=== PATIENT | female | born 1995 | race Caucasian/White ===

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

== ENCOUNTER 2017-03-05 10:27 | Emergency (ER) | payer SELFPAY ==
--- NOTE | 2017-03-05 10:57 | ED ---
HPI Chest Pain - HPI Summary HPI Summary: Pt here w/ central chest pain that radiates laterally Lt > Rt - dull today and lasting for hours. First noticed Friday 2 hours after dinner - had pulled pork ( not unusual for her). Pain was sharp then and lasted a few hours and eventually subsided w/o intervention other than resting. Pain returned again Friday morning before breakfast - she was able to eat pancakes and ham after the episode. Associated sx include POPE - none at this time and no dizziness, lightheadedness. Pain sometimes worse w/ deep breath. No position is more/less comfortable. Today, feels tired in general. Denies cough, SOB, fever, chills, sweats, jaw pain, N/V/D, skin changes, JOSELO pain and no recent injury or cough. She denies routine use of NSAID's however does take ibuprofen for menstrual cramps monthly and admits to new habit of drinking coffee as well as sometimes misses eating lunch. Denies hematochezia, melena. Last BM was this morning and normal for her. She does have an IUD present - LMP was this week - just finished. - History of Current Complaint Chief Complaint: EDChestPainROMI Time Seen by Provider: 03/05/17 10:42 Hx Obtained From: Patient Pain Intensity: 6 - Allergy/Home Medications Allergies/Adverse Reactions: Allergies Allergy/AdvReac Type Severity Reaction Status Date / Time Codeine Allergy See Comment Verified 03/05/17 11:14 [From Promethazine HCl-VC with Codeine] Ethanol Allergy See Comment Verified 03/05/17 11:14 [From Promethazine HCl-VC with Codeine] Phenylephrine Allergy See Comment Verified 03/05/17 11:14 [From Promethazine HCl-VC with Codeine] Promethazine Allergy See Comment Verified 03/05/17 11:14 [From Promethazine HCl-VC with Codeine] PMH/Surg Hx/FS Hx/Imm Hx Previously Healthy: Yes Endocrine/Hematology History: Denies: Hx Anticoagulant Therapy, Hx Blood Disorders, Hx Diabetes, Hx Thyroid Disease, Hx Anemia, Autoimmune Disease Cardiovascular History: Denies: Hx Aneurysm, Hx Atrial Fibrillation, Hx Congenital Heart Disease, Hx Deep Vein Thrombosis, Hx Hypercholesterolemia, Hx Hypertension, Hx Peripheral Vascular Disease, Hx Rheumatic Fever, Hx Syncope, Hx Valvular Heart Disease Respiratory History: Denies: Hx Asthma, Hx Chronic Obstructive Pulmonary Disease (COPD), Hx Pneumonia, Hx Pulmonary Embolism GI History: Denies: Hx Cirrhosis, Hx Crohn's Disease, Hx Diverticulosis, Hx Gall Bladder Disease, Hx Gastroesophageal Reflux Disease, Hx Gastrointestinal Bleed, Hx Hiatal Hernia, Hx Irritable Bowel, Hx Obstructive Bowel, Hx Ulcer Musculoskeletal History: Denies: Hx Arthritis, Hx Osteoporosis Sensory History: Denies: Hx Cataracts, Hx Contacts or Glasses, Hx Glaucoma Opthamlomology History: Denies: Hx Cataracts, Hx Contacts or Glasses, Hx Glaucoma Neurological History: Denies: Hx Headaches, Hx Seizures, Hx Transient Ischemic Attacks (TIA) Psychiatric History: Denies: Hx Anxiety, Hx Depression - Surgical History Surgery Procedure, Year, and Place: ear operation. Bunionectomy bilateral Infectious Disease History: No Infectious Disease History: Denies: Traveled Outside the [place] in Last 30 Days - Family History Known Family History: Positive: Cardiac Disease - CHF, Other - asthma - Social History Occupation: Employed Full-time Lives: With Family Alcohol Use: Rare Hx Substance Use: No Substance Use Type: Reports: None Hx Tobacco Use: Yes - not currently Smoking Status (MU): Former Smoker Review of Systems Constitutional: Negative Negative: Fever, Chills, Fatigue Eyes: Negative ENT: Negative Positive: Chest Pain. Negative: Palpitations Respiratory: Negative Negative: Shortness Of Breath, Cough Negative: Vomiting, Diarrhea, Nausea Positive: no symptoms reported Musculoskeletal: Negative Skin: Negative Positive: Headache. Negative: Weakness, Paresthesia, Numbness, Syncope, Slurred Speech Psychological: Normal All Other Systems Reviewed And Are Negative: Yes Physical Exam Triage Information Reviewed: Yes Vital Signs On Initial Exam: Initial Vitals Temp Pulse Resp BP Pulse Ox 97.5 F 66 16 122/72 99 03/05/17 10:34 03/05/17 10:34 03/05/17 10:34 03/05/17 10:34 03/05/17 10:34 Vital Signs Reviewed: Yes Appearance: Positive: Well-Appearing, No Pain Distress, Well-Nourished Skin: Positive: Warm, Dry - no skin changes over affected area Head/Face: Positive: Normal Head/Face Inspection Eyes: Positive: Normal, EOMI, Conjunctiva Clear - anicteric sclera ENT: Positive: Normal ENT inspection, Hearing grossly normal, Pharynx normal - mucosa moist. Negative: Nasal congestion, Nasal drainage Neck: Positive: Supple, Nontender, No Lymphadenopathy Respiratory/Lung Sounds: Positive: Clear to Auscultation, Breath Sounds Present. Negative: Rales, Rhonchi, Wheezes Cardiovascular: Positive: Normal, RRR, S1, S2. Negative: Murmur, Rub Abdomen Description: Positive: No Organomegaly, Soft, Other: - mild epigastric tenderness. Negative: Distended, Guarding Bowel Sounds: Positive: Present Pelvic Exam: Positive: other - deferred Musculoskeletal: Positive: Normal, Strength/ROM Intact Neurological: Positive: Normal, Sensory/Motor Intact, Alert, Oriented to Person Place, Time, CN Intact II-III Psychiatric: Positive: Normal - Shanika Coma Scale Coma Scale Total: 15 Diagnostics - Vital Signs Vital Signs Temp Pulse Resp BP Pulse Ox 03/05/17 10:44 70 12 100 03/05/17 10:42 118/77 03/05/17 10:34 97.5 F 66 16 122/72 99 - Laboratory Result Diagrams: 03/05/17 11:03 03/05/17 11:03 Lab Statement: Any lab studies that have been ordered have been reviewed, and results considered in the medical decision making process. Re-Evaluation - Re-Evaluation First Eval Change: Improved - pain resolved w/ GI cocktail Chest Pain Course/Dx - Course Course Of Treatment: Pt presents w/ chest pain after/before meals. Better w/ GI cocktail and labs, ECG, CXR neg for acute cardiopulm pathology. Dx'd w/ GERD and advised lifestyle changes, med trial and f/u w/ PCP. Reviewed danger s/sx of when to return to ED. Pt agrees w/ plan. - Diagnoses Provider Diagnoses: GERD (gastroesophageal reflux disease) Discharge - Discharge Plan Condition: Stable Disposition: HOME Prescriptions: Omeprazole CAP* [Prilosec CAP* 20 MG] 20 mg PO BEDTIME #14 Patient Education Materials: Gastroesophageal Reflux Disease (ED) Referrals: [facility] PHYSICIAN REFERRAL [Outside] Blanca IBRAHIMPSamara [Primary Care Provider] - Additional Instructions: You appear to have GERD. Please try the medication prescribed along with lifestyle changes suggested below to reduce/eliminate your symptoms. Specifically, stop taking NSAID's, reduce coffee intake and eat 3+ balanced meals per day It is also important that you follow-up with your PCP in 1 week. Call today to schedule appointment. *If symptoms return or are worse, return to ED GERD (Gastro-Esophageal Reflux Disease aka. HEARTBURN) 1. Keep a food and beverage journal. It can help you track and avoid triggers. Once identified, avoid these. Common items include: chocolate, mint, coffee, alcohol these relax the upper sphincter allowing acid to splash up and cause pain. Others include: acidic (ie citrus, etc), spicy foods, smoking and NSAIDs (advil, ibuprofen, aspirin, aleve, naproxyn) these directly irritate the lining of the stomach 2. Eat small, frequent meals. Overeating at one setting stretches your stomach and puts pressure on the upper sphincter and can push it open enough to allow acid to creep up and cause pain. 3. Wear loose clothing and maintain a healthy weight. Tight pants/shirt and/ or an enlarged abdomen push on your stomach, reducing the amount of space the stomach may stretch while eating. 4. Avoid lying down after eating 5. Stress can increase stomach acid as well as increase restriction of abdominal tension if youre always holding you muscles tight. Practice relaxation techniques such as breathing exercises, guided imagery, regular physical activity to burn off anxiety/stress. 6. Sip chamomile tea (with or without honey). It can help soothe inflamed tissue in the esophagus. 7. Try sleeping on your left side. This may help move acid away from the entrance of the esophagus. 8. You may also try eating a yogurt a day or a probiotic supplement (ie, acidophilus, casei, bifidus, etc) if you have an overgrowth of bad bacteria from too many antibiotics over a lifetime, this may help replace good bacteria and reduce stomach dis-ease
[2017-03-05] MEDS ORDERED: Lidocaine 2% VISCOUS* 15 ML UDC PO ONE (11:00)
[2017-03-05] MEDS ORDERED: Al Hydrox/Mg Hydrox/Simet LIQ* 30 ML UDC PO ONE (11:00)
[2017-03-05 11:13] LABS: Hematocrit 37 % (35-47); Hemoglobin 12.4 g/dl (12.0-16.0); Mean Corpuscular HGB Conc 34 g/dl (31-36); Mean Corpuscular Hemoglobin 30 pg (27-31); Mean Corpuscular Volume 89 fL (80-97); Mean Platelet Volume 9 um3 (7.4-10.4); Red Blood Count 4.14 10^6/ul (4.0-5.4); Red Cell Distribution Width 13 % (10.5-15); White Blood Count 7.7 10^3/ul (3.5-10.8)
--- NOTE | 2017-03-05 11:26 | RAD ---
HISTORY: Chest pain COMPARISONS: None VIEWS: 4: Frontal dual-energy and lateral views of the chest. FINDINGS: CARDIOMEDIASTINAL SILHOUETTE: The cardiomediastinal silhouette is normal. PARK: The park are normal. PLEURA: The costophrenic angles are sharp. No pleural abnormalities are noted. LUNG PARENCHYMA: The lungs are clear. ABDOMEN: The upper abdomen is clear. There is no subphrenic gas. BONES AND SOFT TISSUES: No bone or soft tissue abnormalities are noted. OTHER: None. IMPRESSION: NO ACTIVE CARDIOPULMONARY DISEASE.
[2017-03-05 11:31] LABS: ALT 11 U/L (7-52); AST 14 U/L (13-39); Albumin 4.3 g/dL (3.2-5.2); Alkaline Phosphatase 55 U/L (34-104); Amylase 52 U/L (29-103); Anion Gap 5 mmol/L (2-11); BUN/Creatinine Ratio 12.3 (8-20); Blood Urea Nitrogen 10 mg/dL (6-24); CO2 Carbon Dioxide 28 mmol/L (22-32); Calcium 9.5 mg/dL (8.6-10.3); Chloride 106 mmol/L (101-111); EGFR African American 117.1 (>60); EGFR Non-African American 91.1 (>60); Globulin 2.5 g/dL (2-4); Glucose 96 mg/dL (70-100); Lipase 19 U/L (11.0-82.0); Magnesium 1.8 mg/dL (1.9-2.7); Potassium 3.7 mmol/L (3.5-5.0); Sodium 139 mmol/L (133-145); Total Protein 6.8 g/dL (6.4-8.9)
[2017-03-05 12:07] LABS: TSH (Thyroid Stimulating Horm) 2.17 mcIU/mL (0.34-5.60)
[2017-03-05 12:10] VITALS: BP 113/70
== END 2017-03-05 12:33 | disposition home or self-care (01) ==
LOC: ED 10:27
DX: K21.9 Gastro-esophageal reflux disease without esophagitis (principal); R07.9 Chest pain, unspecified; Z87.891 Personal history of nicotine dependence
CPT/HCPCS: 36415; 71020; 80053; 82150; 83605; 83690; 83735; 84443; 84484; 84702; 85025; 85379; 93005; 99282; A9270-GY

== ENCOUNTER 2017-03-31 18:20 | Emergency (ER) | payer OTHER ==
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
[2017-03-31 18:54] VITALS: BP 115/68
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
[2017-03-31] MEDS ORDERED: Ibuprofen TAB* 400 MG PO ONE (20:30)
[2017-03-31] MEDS ORDERED: Ibuprofen TAB* 400 MG ONE (20:31)
== END 2017-03-31 20:30 | disposition home or self-care (01) ==
LOC: UCCORT 18:20
DX: S09.90XA Unspecified injury of head, initial encounter (principal); S40.012A Contusion of left shoulder, initial encounter; S20.212A Contusion of left front wall of thorax, initial encounter; V89.2XXA Person injured in unspecified motor-vehicle accident, traffic, initial encounter; Y92.9 Unspecified place or not applicable; Z88.8 Allergy status to other drugs, medicaments and biological substances; Z87.891 Personal history of nicotine dependence
CPT/HCPCS: 70450; 71046; 72125; 99213; A9270-GY; G0463

== ENCOUNTER 2017-05-09 14:31 | Emergency (ER) | payer BC, OTHER ==
[2017-05-09 14:50] VITALS: BP 114/67
--- NOTE | 2017-05-09 14:52 | UC ---
FLU HPI - HPI Summary HPI Summary: Pt c/o malaise, fever, chills, cough X 4 days. Pt has known exposure to flu at home. - History of Current Complaint Stated Complaint: FLU SYMPTOMS Time Seen by Provider: 05/09/17 14:43 Hx Obtained From: Patient Hx Last Menstrual Period: 03/01/17 ?: No Onset/Duration: Sudden Onset, Lasting Days, Still Present Severity Currently: Mild Severity Initially: Moderate Pain Intensity: 6 Associated Signs & Symptoms: Positive: Fever, Cough, Nasal Congestion Related Hx: Possible Flu/Infectious Exposure - Risk Factors Influenza Risk Factors: Negative - Allergy/Home Medications Allergies/Adverse Reactions: Allergies Allergy/AdvReac Type Severity Reaction Status Date / Time MS Ethanol Allergy See Comment Verified 05/09/17 14:45 [From Promethazine HCl-VC with Codeine] MS Phenylephrine Allergy See Comment Verified 05/09/17 14:45 [From Promethazine HCl-VC with Codeine] MS Promethazine Allergy See Comment Verified 05/09/17 14:45 [From Promethazine HCl-VC with Codeine] Home Medications: Home Medications Meloxicam [Mobic] 7.5 mg PO BID PRN 05/09/17 [History Confirmed 05/09/17] PMH/Surg Hx/FS Hx/Imm Hx Previously Healthy: Yes Other History Of: Negative For: Anticoagulant Therapy - Surgical History Surgical History: Yes Surgery Procedure, Year, and Place: ear operation. Bunionectomy bilateral - Family History Known Family History: Positive: Cardiac Disease - CHF, Other - asthma - Social History Lives: With Family Alcohol Use: None Substance Use Type: None Smoking Status (MU): Former Smoker Type: Cigarettes Have You Smoked in the Last Year: Yes When Did the Patient Quit Smoking/Using Tobacco: ONE MONTH AGO - Immunization History Vaccination Up to Date: Yes Review of Systems Constitutional: Fever, Chills, Fatigue Skin: Negative Eyes: Negative ENT: Sinus Congestion Respiratory: Cough Cardiovascular: Negative Gastrointestinal: Negative Genitourinary: Negative Motor: Negative Neurovascular: Negative Musculoskeletal: Myalgia Neurological: Negative Psychological: Negative Is Patient Immunocompromised?: No All Other Systems Reviewed And Are Negative: Yes Physical Exam Triage Information Reviewed: Yes Appearance: Ill-Appearing Vital Signs: Initial Vital Signs Temp 99.3 F 05/09/17 14:46 Pulse 80 05/09/17 14:46 Resp 16 05/09/17 14:46 BP 114/67 05/09/17 14:46 Pulse Ox 98 05/09/17 14:46 Vital Signs Reviewed: Yes Eye Exam: Normal ENT Exam: Other ENT: Positive: Nasal congestion Neck exam: Normal Respiratory Exam: Normal Cardiovascular Exam: Normal Musculoskeletal Exam: Normal Neurological Exam: Normal Psychological Exam: Normal Skin Exam: Normal Flu Course/Dx - Differential Dx/Diagnosis Differential Diagnosis/HQI/PQRI: Influenza, Upper Respiratory Infection Provider Diagnoses: Influenza Discharge - Discharge Plan Condition: Stable Disposition: HOME Prescriptions: Oseltamivir CAP* [Tamiflu CAP*] 75 mg PO Q12H #10 cap Patient Education Materials: Influenza (ED) Referrals: [facility] PHYSICIAN REFERRAL [Outside] No Primary Care Phys,NOPCP [Primary Care Provider] -
== END 2017-05-09 15:02 | disposition home or self-care (01) ==
LOC: UCCORT 14:31
DX: J11.1 Influenza due to unidentified influenza virus with other respiratory manifestations (principal); Z88.8 Allergy status to other drugs, medicaments and biological substances; Z82.49 Family history of ischemic heart disease and other diseases of the circulatory system; Z87.891 Personal history of nicotine dependence
CPT/HCPCS: 99212; G0463

== ENCOUNTER 2017-10-07 21:39 | Emergency (ER) | payer BC ==
[2017-10-07 21:50] VITALS: BP 114/70
[2017-10-07] MEDS ORDERED: diPHENhydraMINE PO* 25 MG PO ONE (21:59)
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
[2017-10-07] MEDS ORDERED: predniSONE TAB* 20 MG PO ONE (22:02)
[2017-10-08] MEDS ORDERED: predniSONE TAB* 20 MG PO SCH (09:00)
== END 2017-10-07 22:08 | disposition home or self-care (01) ==
LOC: UCCORT 21:39
DX: R21 Rash and other nonspecific skin eruption (principal); Z88.8 Allergy status to other drugs, medicaments and biological substances; Z82.49 Family history of ischemic heart disease and other diseases of the circulatory system; Z82.5 Family history of asthma and other chronic lower respiratory diseases; Z87.891 Personal history of nicotine dependence
CPT/HCPCS: 99212; A9270-GY; G0463; J7512

== ENCOUNTER 2018-07-25 22:16 | Emergency (ER) | payer BC ==
[2018-07-25 23:48] LABS: ABS Basophils 0 10^3/ul (0-0.2); ABS Eosinophils 0.4 10^3/ul (0-0.6); ABS Lymphocytes 2.7 10^3/ul (1.0-4.8); ABS Monocytes 0.8 10^3/ul (0-0.8); ABS Neutrophils 6.8 10^3/ul (1.5-7.7); ABS Nucleated RBC 0 10^3/ul; Eosinophil % 3.5 %; Hematocrit 36 % (33-41); Hemoglobin 12.2 g/dL (12.0-16.0); Lymphocyte % 25.4 %; Mean Corpuscular HGB Conc 34 g/dL (31-36); Mean Corpuscular Hemoglobin 30 pg (27-31); Mean Corpuscular Volume 88 fL (80-97); Mean Platelet Volume 8.6 fL (7.4-10.4); Nucleated Red Blood Cells % 0; Platelet Count 200 10^3/uL (150-450); Red Blood Count 4.05 10^6 /uL (3.70-4.87); Red Cell Distribution Width 14 % (10.5-15); White Blood Count 10.7 10^3/uL (3.5-10.8)
[2018-07-26 00:06] LABS: Albumin 4.3 g/dL (3.2-5.2); Albumin/Globulin Ratio 1.9 (1-3); BUN/Creatinine Ratio 20.8 (8-20); C Reactive Protein 2.86 mg/L (<8.01); Calcium 9.5 mg/dL (8.6-10.3); EGFR African American 123.7 (>60); EGFR Non-African American 102.3 (>60); Globulin 2.3 g/dL (2-4); Magnesium 1.8 mg/dL (1.9-2.7); Total Bilirubin 0.3 mg/dL (0.2-1.0); Total Protein 6.6 g/dL (6.4-8.9)
[2018-07-26] MEDS ORDERED: Metoclopramide IV* 5 MG/ML 2 ML VIAL IV SLOW PU ONE (00:11)
[2018-07-26] MEDS ORDERED: NS 0.9% 1000 ML** 1,000 ML IV ONE (00:11)
--- NOTE | 2018-07-26 00:35 | ED ---
GI/ HPI - HPI Summary HPI Summary: 23 year old female presents with nausea and vomiting for the past 24 hours. States only bowel pain when she is vomiting. No urinary symptoms. States she' s not been keeping anything down in 24 hours. This has never happened before. No fevers. No diarrhea or constipation. Has not tried anything for the symptoms. Had an ultrasound has history of a subchorionic hemorrhage. Denies any vaginal bleeding. - History of Current Complaint Chief Complaint: EDNauseaVomitDiarrh Time Seen by Provider: 07/26/18 00:11 Stated Complaint: 9 WKS PREG/VOMITING PER PT Hx Last Menstrual Period: 04/22/18 Pain Intensity: 8 - Allergy/Home Medications Allergies/Adverse Reactions: Allergies Allergy/AdvReac Type Severity Reaction Status Date / Time promethazine Allergy Altered Verified 07/25/18 22:19 Mental Status Home Medications: Home Medications Pnv No.121/Iron/Folic Acid [ Multivitamin Tablet] 1 each PO DAILY [History Confirmed 07/26/18] PMH/Surg Hx/FS Hx/Imm Hx Endocrine/Hematology History: Denies: Hx Anticoagulant Therapy, Hx Blood Disorders, Hx Diabetes, Hx Thyroid Disease, Hx Anemia Cardiovascular History: Denies: Hx Aneurysm, Hx Atrial Fibrillation, Hx Congenital Heart Disease, Hx Deep Vein Thrombosis, Hx Hypercholesterolemia, Hx Hypertension, Hx Peripheral Vascular Disease, Hx Rheumatic Fever, Hx Syncope, Hx Valvular Heart Disease Respiratory History: Denies: Hx Asthma, Hx Chronic Obstructive Pulmonary Disease (COPD), Hx Pneumonia, Hx Pulmonary Embolism GI History: Denies: Hx Cirrhosis, Hx Crohn's Disease, Hx Diverticulosis, Hx Gall Bladder Disease, Hx Gastroesophageal Reflux Disease, Hx Gastrointestinal Bleed, Hx Hiatal Hernia, Hx Irritable Bowel, Hx Obstructive Bowel, Hx Ulcer Musculoskeletal History: Denies: Hx Arthritis, Hx Osteoporosis Sensory History: Denies: Hx Cataracts, Hx Contacts or Glasses, Hx Glaucoma Opthamlomology History: Denies: Hx Cataracts, Hx Contacts or Glasses, Hx Glaucoma Neurological History: Denies: Hx Headaches, Hx Seizures, Hx Transient Ischemic Attacks (TIA) Psychiatric History: Denies: Hx Anxiety, Hx Depression - Surgical History Surgery Procedure, Year, and Place: ear operation. Bunionectomy bilateral Infectious Disease History: No Infectious Disease History: Denies: Traveled Outside the [place] in Last 30 Days - Family History Known Family History: Positive: Cardiac Disease - CHF, Other - asthma - Social History Alcohol Use: None Hx Substance Use: No Substance Use Type: Reports: None Hx Tobacco Use: Yes - not currently Smoking Status (MU): Former Smoker Type: Cigarettes Have You Smoked in the Last Year: Yes Review of Systems Negative: Fever Negative: Chest Pain Negative: Shortness Of Breath Positive: Abdominal Pain, Vomiting, Nausea All Other Systems Reviewed And Are Negative: Yes Physical Exam Triage Information Reviewed: Yes Vital Signs On Initial Exam: Initial Vitals Temp Pulse Resp BP Pulse Ox 97.9 F 72 16 130/80 100 07/25/18 22:18 07/25/18 22:18 07/25/18 22:18 07/25/18 22:18 07/25/18 22:18 Vital Signs Reviewed: Yes Appearance: Positive: Well-Appearing Skin: Positive: Warm, Dry Head/Face: Positive: Normal Head/Face Inspection Eyes: Positive: Normal, EOMI, SAGAR, Conjunctiva Clear ENT: Positive: Normal ENT inspection, Pharynx normal, TMs normal Respiratory/Lung Sounds: Positive: Clear to Auscultation, Breath Sounds Present Cardiovascular: Positive: Normal, RRR Abdomen Description: Positive: Nontender, Soft Bowel Sounds: Positive: Present Musculoskeletal: Positive: Normal Neurological: Positive: Normal Psychiatric: Positive: Normal Diagnostics - Vital Signs Vital Signs Temp Pulse Resp BP Pulse Ox 07/25/18 22:18 97.9 F 72 16 130/80 100 - Laboratory Lab Results: Lab Results 07/25/18 07/25/18 07/25/18 Range/Units 23:33 23:33 23:33 WBC 10.7 (3.5-10.8) 10^3/uL RBC 4.05 (3.70-4.87) 10^6 /uL Hgb 12.2 (12.0-16.0) g/dL Hct 36 (33-41) % MCV 88 (80-97) fL MCH 30 (27-31) pg MCHC 34 (31-36) g/dL RDW 14 (10.5-15) % Plt Count 200 (150-450) 10^3/uL MPV 8.6 (7.4-10.4) fL Neut % (Auto) 63.3 % Lymph % (Auto) 25.4 % Early % (Auto) 7.4 % Eos % (Auto) 3.5 % Baso % (Auto) 0.4 % Absolute Neuts (auto) 6.8 (1.5-7.7) 10^3/ul Absolute Lymphs (auto) 2.7 (1.0-4.8) 10^3/ul Absolute Monos (auto) 0.8 (0-0.8) 10^3/ul Absolute Eos (auto) 0.4 (0-0.6) 10^3/ul Absolute Basos (auto) 0 (0-0.2) 10^3/ul Absolute Nucleated RBC 0 10^3/ul Nucleated RBC % 0 Sodium 137 (135-145) mmol/L Potassium 4.0 (3.5-5.0) mmol/L Chloride 105 (101-111) mmol/L Carbon Dioxide 25 (22-32) mmol/L Anion Gap 7 (2-11) mmol/L BUN 15 (6-24) mg/dL Creatinine 0.72 (0.51-0.95) mg/dL Est GFR ( Amer) 123.7 (>60) Est GFR (Non-Af Amer) 102.3 (>60) BUN/Creatinine Ratio 20.8 H (8-20) Glucose 83 (70-100) mg/dL Lactic Acid 0.6 (0.5-2.0) mmol/L Calcium 9.5 (8.6-10.3) mg/dL Magnesium 1.8 L (1.9-2.7) mg/dL Total Bilirubin 0.30 (0.2-1.0) mg/dL AST 14 (13-39) U/L ALT 11 (7-52) U/L Alkaline Phosphatase 42 (34-104) U/L C-Reactive Protein 2.86 (<8.01) mg/L Total Protein 6.6 (6.4-8.9) g/dL Albumin 4.3 (3.2-5.2) g/dL Globulin 2.3 (2-4) g/dL Albumin/Globulin Ratio 1.9 (1-3) Lipase 24 (11.0-82.0) U/L Beta HCG, Quant 417941.00 mIU/mL Result Diagrams: 07/25/18 23:33 07/25/18 23:33 Lab Statement: Any lab studies that have been ordered have been reviewed, and results considered in the medical decision making process. Re-Evaluation - Re-Evaluation First Eval Re-Evaluation Time: 02:28 Change: Improved Comment: feeling better GIGU Course/Dx - Course Course Of Treatment: 23 year old female presents with nausea and vomiting for the past 24 hours. States only bowel pain when she is vomiting. No urinary symptoms. States she's not been keeping anything down in 24 hours. This has never happened before. No fevers. No diarrhea or constipation. Has not tried anything for the symptoms. Had an ultrasound has history of a subchorionic hemorrhage. Denies any vaginal bleeding. On exam nontender abdomen. wbc normal. Magnesium low. We will give fluids. feeling better after reglan. will discharge with reglan. told to follow up with [facility]. patient understand and agrees with plan. - Diagnoses Differential Diagnoses - Female: Gastroenteritis (Viral), , Urinary Tract Infection Provider Diagnoses: Vomiting during Discharge - Sign-Out/Discharge Documenting (check all that apply): Patient Departure Patient Received Moderate/Deep Sedation with Procedure: No - Discharge Plan Condition: Good Disposition: HOME Prescriptions: Metoclopramide TAB* [Reglan TAB*] 10 mg PO Q6H #20 tab Patient Education Materials: Nausea and Vomiting in (ED) Forms: *Work Release Referrals: Hemant Malone DO [Primary Care Provider] - Additional Instructions: Take reglan every 6 hours for vomiting Eat a small snack throughout the day, drink liquids as tolerated Follow up with obgyn Return to ED if develop any new or worsening symptoms - Billing Disposition and Condition Condition: GOOD Disposition: Home
[2018-07-26] MEDS ORDERED: Magnesium Chloride EC TAB* 64 MG PO ONE (01:24)
[2018-07-26 03:39] VITALS: BP 122/79
== END 2018-07-26 02:35 | disposition home or self-care (01) ==
LOC: ED 22:16
DX: O21.0 Mild hyperemesis gravidarum (principal); Z3A.09 9 weeks gestation of pregnancy; Z88.8 Allergy status to other drugs, medicaments and biological substances; Z87.891 Personal history of nicotine dependence
CPT/HCPCS: 36415; 80053; 83605; 83690; 83735; 84702; 85025; 86140; 96361; 96374; 99283; A9270-GY; J2765

== ENCOUNTER 2018-07-28 13:34 | Emergency (ER) | payer BC, MEDICAID ==
[2018-07-28] MEDS: NS 0.9% 1000 ML** 1,000 ML IV.FLUID IV ONE (16:11)
[2018-07-28] MEDS: diPHENhydraMINE IV* 50 MG/ML 1 ml VIAL (BENADRYL) IV ONE (16:11)
[2018-07-28] MEDS: Metoclopramide IV* 5 MG/ML 2 ML VIAL IV ONE (16:11)
--- NOTE | 2018-07-28 16:20 | ED ---
- HPI Summary HPI Summary: Pt is a 23 y/o female who presents to the ED c/o N/V. 4 days ago she began having N/V and intermittent abdominal cramping. She denies any vaginal bleeding or discharge. Pt has not been able to keep any food or liquid down, including Ensure, Gatorade, silke sue, and jello. Pain is rated a 7/10 in severity. She is currently 10 weeks and 2 days , and this is her first . She was diagnosed with a subchorionic hemorrhage and is currently switching to a new [facility]. Pt was here 3 days ago and was prescribed oral Reglan without relief. PMHx ovarian cysts. - History of Current Complaint Chief Complaint: EDNauseaVomitDiarrh Stated Complaint: VOMITING PER PT Time Seen by Provider: 07/28/18 15:59 Hx Obtained From: Patient Chief Complaint: Other: - N/V Onset/Duration: Started Days Ago - 4, Still Present Timing: Constant Current Severity: Moderate Pain Intensity: 7 Location of Pain: Diffuse Character: Cramping Aggravating Factors: Other: - Food/Drink Associated Signs and Symptoms: Positive: Nausea, Vomiting. Negative: Vaginal Bleeding or Discharge - Assessment Hx Now: No - Allergies/Home Medications Allergies/Adverse Reactions: Allergies Allergy/AdvReac Type Severity Reaction Status Date / Time promethazine Allergy Altered Verified 07/28/18 13:43 Mental Status PMH/Surg Hx/FS Hx/Imm Hx Endocrine/Hematology History: Denies: Hx Anticoagulant Therapy, Hx Blood Disorders, Hx Diabetes, Hx Thyroid Disease, Hx Anemia Cardiovascular History: Denies: Hx Aneurysm, Hx Atrial Fibrillation, Hx Congenital Heart Disease, Hx Deep Vein Thrombosis, Hx Hypercholesterolemia, Hx Hypertension, Hx Peripheral Vascular Disease, Hx Rheumatic Fever, Hx Syncope, Hx Valvular Heart Disease Respiratory History: Denies: Hx Asthma, Hx Chronic Obstructive Pulmonary Disease (COPD), Hx Pneumonia, Hx Pulmonary Embolism GI History: Denies: Hx Cirrhosis, Hx Crohn's Disease, Hx Diverticulosis, Hx Gall Bladder Disease, Hx Gastroesophageal Reflux Disease, Hx Gastrointestinal Bleed, Hx Hiatal Hernia, Hx Irritable Bowel, Hx Obstructive Bowel, Hx Ulcer History: Reports: Other Problems/Disorders - ovarian cyst Musculoskeletal History: Denies: Hx Arthritis, Hx Osteoporosis Sensory History: Denies: Hx Cataracts, Hx Contacts or Glasses, Hx Glaucoma Opthamlomology History: Denies: Hx Cataracts, Hx Contacts or Glasses, Hx Glaucoma Neurological History: Denies: Hx Headaches, Hx Seizures, Hx Transient Ischemic Attacks (TIA) Psychiatric History: Denies: Hx Anxiety, Hx Depression - Surgical History Surgery Procedure, Year, and Place: ear operation. Bunionectomy bilateral Infectious Disease History: No Infectious Disease History: Denies: Traveled Outside the [place] in Last 30 Days - Family History Known Family History: Positive: Cardiac Disease - CHF, Other - asthma - Social History Alcohol Use: None Hx Substance Use: No Substance Use Type: Reports: None Hx Tobacco Use: Yes - not currently Smoking Status (MU): Former Smoker Type: Cigarettes Have You Smoked in the Last Year: Yes Review of Systems Positive: Abdominal Pain - cramping, Vomiting, Nausea Negative: discharge, other - vaginal bleeding All Other Systems Reviewed And Are Negative: No Physical Exam - Summary Physical Exam Summary: Appearance: well appearing, no pain distress Skin: warm, dry, reflects adequate perfusion Head/face: normal Eyes: EOMI, SAGAR ENT: mucous membranes moist Neck: supple, non-tender Respiratory: CTA, breath sounds present Cardiovascular: RRR, pulses symmetrical Abdomen: non-tender, soft Bowel Sounds: present Musculoskeletal: normal, strength/ROM intact Neuro: normal, sensory motor intact, A&Ox3 - Physical Exam Triage Information Reviewed: Yes Vital Signs Reviewed: Yes Diagnostics - Vital Signs Vital Signs Temp Pulse Resp BP Pulse Ox 07/28/18 15:29 97.5 F 72 18 108/64 100 07/28/18 13:43 98.5 F 73 15 118/71 99 - Laboratory Result Diagrams: 07/28/18 15:53 07/28/18 15:53 Lab Statement: Any lab studies that have been ordered have been reviewed, and results considered in the medical decision making process. Re-Evaluation - Re-Evaluation First Eval Re-Evaluation Time: 17:00 Change: Improved Comment: Pt feels better after medications. Course/Dx - Course Course Of Treatment: Patient is 10 weeks with intractable nausea and vomiting. This is recurrent for her. She is only on oral Reglan outpatient. Her laboratories here are normal and she is feeling better after IV treatment and IV fluids. We will start her on B complex vitamins and Unisom taken before bed and will give her as needed Zofran ODT 4 when she cannot keep down pills. Other times she'll be maintained on promethazine. Follow-up [facility]. Assessment/Plan: Ultrasound was done earlier in the day with [facility] and so not repeated. - Differential Diagnosis/HQI/PQRI: Other: - Hyperemesis gravidarum, vomiting and , dehydration - Diagnoses Provider Diagnoses: Vomiting during , First trimester Discharge - Sign-Out/Discharge Documenting (check all that apply): Patient Departure - Discharge Patient Received Moderate/Deep Sedation with Procedure: No - Discharge Plan Condition: Improved Disposition: HOME Prescriptions: Ondansetron ODT TAB* [Zofran 4 MG Odt TAB*] 4 mg PO Q8H PRN #15 tab.odt PRN Reason: Nausea Promethazine TAB* [Phenergan Tab*] 25 mg PO Q6H PRN #30 tab PRN Reason: Nausea Patient Education Materials: Nausea and Vomiting in (ED) Referrals: Hemant Malone DO [Primary Care Provider] - Additional Instructions: [place] diet, drink plenty of fluids. Take B complex vitamin and Unisom 2 hours before bed. This should help baseline nausea. Call your [facility] first thing in the morning to schedule follow-up. Return if unable to keep down fluids, worse , new symptoms or other concerns. - Billing Disposition and Condition Condition: IMPROVED Disposition: Home - Attestation Statements Document Initiated by Emerita: Yes Documenting Scribe: Erica Valdez Provider For Whom Emerita is Documenting (Include Credential): Sid Chicas MD Scribe Attestation: IErica, scribed for Sid Chicas MD on 07/28/18 at 1905. Scribe Documentation Reviewed: Yes Provider Attestation: The documentation as recorded by the Erica rivera accurately reflects the service I personally performed and the decisions made by , Sid Chicas MD Status of Scribe Document: Viewed
[2018-07-28 16:21] LABS: ABS Basophils 0 10^3/ul (0-0.2); ABS Eosinophils 0.2 10^3/ul (0-0.6); ABS Lymphocytes 1.7 10^3/ul (1.0-4.8); ABS Monocytes 0.6 10^3/ul (0-0.8); ABS Neutrophils 6.6 10^3/ul (1.5-7.7); ABS Nucleated RBC 0 10^3/ul; Eosinophil % 2.3 %; Hematocrit 38 % (33-41); Hemoglobin 12.7 g/dL (12.0-16.0); Lymphocyte % 18.7 %; Mean Corpuscular HGB Conc 33 g/dL (31-36); Mean Corpuscular Hemoglobin 29 pg (27-31); Mean Corpuscular Volume 88 fL (80-97); Mean Platelet Volume 9.1 fL (7.4-10.4); Nucleated Red Blood Cells % 0.1; Platelet Count 195 10^3/uL (150-450); Red Blood Count 4.36 10^6 /uL (3.70-4.87); Red Cell Distribution Width 13 % (10.5-15); White Blood Count 9.1 10^3/uL (3.5-10.8)
[2018-07-28 16:32] LABS: BUN/Creatinine Ratio 14.3 (8-20); Calcium 9.3 mg/dL (8.6-10.3); EGFR African American 144.3 (>60); EGFR Non-African American 119.3 (>60); Potassium 4.1 mmol/L (3.5-5.0)
[2018-07-28 17:21] VITALS: BP 103/68
== END 2018-07-28 17:19 | disposition home or self-care (01) ==
LOC: ED 13:34
DX: O21.0 Mild hyperemesis gravidarum (principal); Z3A.10 10 weeks gestation of pregnancy; Z87.891 Personal history of nicotine dependence
CPT/HCPCS: 36415; 80048; 85025; 96361; 96374; 96375; 99282; J1200; J2765

== ENCOUNTER 2018-10-11 17:47 | Emergency (ER) | payer BC, MEDICAID, OTHER ==
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
[2018-10-11] MEDS ORDERED: Acetaminophen TAB* 325 MG PO ONE (19:23)
[2018-10-11 19:46] LABS: Urine Appearance Cloudy; Urine Bilirubin Negative (Negative); Urine Blood Negative (Negative); Urine Color Yellow; Urine Glucose Negative (Negative); Urine Ketones Negative (Negative); Urine Nitrite Negative (Negative); Urine Protein Negative (Negative); Urine Urobilinogen Negative (Negative)
[2018-10-11 20:32] LABS: ABS Basophils 0.1 10^3/ul (0-0.2); ABS Eosinophils 0.5 10^3/ul (0-0.6); ABS Lymphocytes 2.3 10^3/ul (1.0-4.8); ABS Monocytes 0.9 10^3/ul (0-0.8); ABS Neutrophils 7.2 10^3/ul (1.5-7.7); Eosinophil % 4.9 %; Hematocrit 34 % (35-47); Hemoglobin 11.4 g/dL (12.0-16.0); Mean Corpuscular HGB Conc 34 g/dL (31-36); Mean Corpuscular Hemoglobin 30 pg (27-31); Mean Corpuscular Volume 88 fL (80-97); Mean Platelet Volume 9.4 fL (7.4-10.4); Nucleated Red Blood Cells % 0.1; Platelet Count 145 10^3/uL (150-450); Red Blood Count 3.81 10^6 /uL (3.70-4.87); Red Cell Distribution Width 14 % (10-15); White Blood Count 11.1 10^3/uL (3.5-10.8)
[2018-10-11 20:49] LABS: Albumin 3.7 g/dL (3.2-5.2); Albumin/Globulin Ratio 1.4 (1-3); Calcium 9.3 mg/dL (8.6-10.3); EGFR Non-African American 107.4 (>60); Globulin 2.7 g/dL (2-4); Potassium 3.8 mmol/L (3.5-5.0); Total Bilirubin 0.3 mg/dL (0.2-1.0); Total Protein 6.4 g/dL (6.4-8.9)
[2018-10-11 21:57] VITALS: BP 121/63
== END 2018-10-11 21:56 | disposition home or self-care (01) ==
LOC: ED 17:47
DX: O20.0 Threatened abortion (principal); Z3A.20 20 weeks gestation of pregnancy; Z88.8 Allergy status to other drugs, medicaments and biological substances; Z87.891 Personal history of nicotine dependence
CPT/HCPCS: 36415; 76815; 80053; 81003; 85025; 86850; 86900; 86901; 99283; A9270-GY

== ENCOUNTER 2019-02-20 14:34 | Inpatient (IN) | payer MEDICAID, OTHER ==
[2019-02-20] MEDS ORDERED: Promethazine INJ(RESTRICTED)* 25 MG/ML 1 ML VIAL IM ONE (19:00)
[2019-02-20] MEDS ORDERED: Nalbuphine* 10 MG/ML 1 ML VIAL IM ONE (19:00)
[2019-02-20] MEDS ORDERED: OBEPIDURAL* 250 ML EPIDURAL ONE (20:25)
[2019-02-20 20:39] LABS: Hematocrit 37 % (35-47); Hemoglobin 12.2 g/dL (12.0-16.0); Mean Corpuscular HGB Conc 33 g/dL (31-36); Mean Corpuscular Hemoglobin 27 pg (27-31); Mean Corpuscular Volume 83 fL (80-97); Mean Platelet Volume 9.7 fL (7.4-10.4); Platelet Count 140 10^3/uL (150-450); Red Blood Count 4.49 10^6 /uL (3.70-4.87); Red Cell Distribution Width 14 % (10-15); White Blood Count 22.1 10^3/uL (3.5-10.8)
[2019-02-20] MEDS ORDERED: Lactated Ringers 1000 ML Bag* 1,000 ML IV ONE (20:54)
[2019-02-20] MEDS ORDERED: Buffered Lidocaine 1% SYRIN* 1 ML/SYRINGE INTRADERM ONE (20:54)
[2019-02-20] MEDS ORDERED: Lactated Ringers 1000 ML Bag* 1,000 ML IV SCH ×2 (21:00→23:45)
--- NOTE | 2019-02-20 21:14 | HP ---
General Information - Reason for Visit Pt c/o increasing ctx throughout the day. Says she has been leaking fluid throughout the , maybe there was more since 5:30am but she isn't really sure. - General Information Maternal Age: 23 Grav: 1 Para: 0 SAB: 0 IEA: 0 Estimated Due Date: 02/22/19 Determined By: Early Ultrasound Maternal Blood Type and Rh: A Positive - Results this Serology/RPR Result: Non-Reactive Rubella Result: Immune HBsAg Result: Negative HIV Result: Negative GBS Culture Result: Negative Past Medical History Pertinent Past Medical History: See Records Pertinent Past Surgical History: See Records Pertinent Family History: Non-Contributory - Antepartal Records Antepartal Records: Reviewed, Uncomplicated Review of Systems Constitutional: Uncomfortable CV Complaint: No Respiratory: Shortness of Breath: No Genitourinary: Leaking Fluid, No Bleeding Musculoskeletal: Contractions Movement: Normal Exam Allergies/Adverse Reactions: Allergies codeine Allergy (Severe, Verified 02/20/19 15:08) See Comment Pt states she becomes unresponsive promethazine Allergy (Severe, Verified 02/20/19 15:08) See Comment Pt states she becomes unresponsive Lab Values - Entire Visit: Laboratory Tests 02/20/19 02/20/19 02/20/19 14:52 20:28 20:28 WBC 22.1 H RBC 4.49 Hgb 12.2 Hct 37 MCV 83 MCH 27 MCHC 33 RDW 14 Plt Count 140 L MPV 9.7 Vag Amniotic Fld Detect Positive Blood Type A Positive - Measurements Height: 5 ft 6 in Weight: 198 lb Weight in lbs: [id number] Body Mass Index (BMI): 31.9 Pre- Weight: 160 lb 0.01 oz Weight Gained This : 37.99 lbs and 0.15 ozs - Exam Breast: Breast Exam Deferred Extremities: No Edema Heart: Normal Rhythm/Heart Sounds HEENT: No Significant Findings - Ultrasound/Biophysical Profile Ultrasound Status: Not Done Targeted Exam Findings Cervical Exam: 6cm Effacement: 90% Station: 0 Presenting Part: Vertex - per RN Membrane Status: SROM Amniotic Fluid Evaluation: Positive ROM Plus EFM Findings - External Monitor Findings Baseline Heart Rate: 135 External Monitor Findings: Accelerations Present, No Pattern of Variable or Late Decelerations, Variability Moderate, Baseline Stable Contractions: Regular Assessment/Plan - Assessment 23yo @39.5wks in active labor, srom, GBS neg. - Plan Plan: Observe, Admit - Anticipate Vaginal Delivery
[2019-02-20] MEDS ORDERED: Oxytocin in LR* 20 UNITS/1,000 ML BAG IVPB ONE (23:09)
[2019-02-20] MEDS ORDERED: Witch Hazel PAD* JAR TOPICAL PRN (23:54)
[2019-02-20] MEDS ORDERED: Glycerin ADULT SUPP PR PRN (23:54)
--- NOTE | 2019-02-21 00:01 | PROCNOTE ---
[facility] OB: Delivery Note - Delivery A Date of : 02/20/19 Time of : 11:32 [place] Sex: Female Weight at : 6 lb Score 1 Minute: 9 Score 5 Minutes: 9 Gestational Age in Weeks and Days at Delivery: 39 Weeks and 5 Days Delivery Method: Spontaneous Vaginal Labor: Spontaneous Amniotic Fluid: Clear Estimated Blood Loss: 200 Anesthesia/Analgesia: CEI for Labor Delivered By: Amaris Wong - Nursery Level of Nursery: Regular/Bedside - Perineum Perineal Injury: None/Intact - Events Delivery Events of Note: Pitocin Only After Delivery - Additional Delivery Notes Additional Delivery Notes: Pt arrived in early labor, received Nubain and phenergan for therapeutic rest. Then awoke in active labor, received an epidural and progressed quickly to fully dilated. She pushed 30min to deliver the infant's head in ИРИНА position over intact perineum. I loose nuchal cord was easily reduced and an anterior compound hand was delivered followed by the rest of the body. The baby was placed on mom's abdomen. After more than 1min the cord was clamped x2 and cut by the dad. The placenta delivered with gentle cord traction and fundal massage and appeared intact. A brief gush of blood resolved quickly with uterine massage. Fundus was then found to be firm with good hemostasis. Mom and baby were stable at time of note.
[2019-02-21] MEDS ORDERED: Phenylephrine 40 MCG/ML SYRINGE IV PUSH PRN ×2 (00:48)
[2019-02-21] MEDS: Ibuprofen TAB* 600 MG PO PRN ×4 (00:48→21:22)
[2019-02-21] MEDS ORDERED: Sodium Citrate/Citric Acid* 15 ML UDC PO PRN (00:48)
[2019-02-21] MEDS ORDERED: Lactated Ringers 1000 ML Bag* 1,000 ML IV ONE (00:48)
[2019-02-21] MEDS ORDERED: Lactated Ringers 1000 ML Bag* 500 ML IV PRN ×2 (00:48)
[2019-02-21] MEDS ORDERED: Famotidine TAB* 20 MG PO PRN (00:48)
[2019-02-21] MEDS: Dibucaine 1% 28.35 GM TUBE PR PRN ×3 (00:48→17:09)
[2019-02-21] MEDS ORDERED: Lactated Ringers 1000 ML Bag* 1,000 ML IV SCH (01:00)
[2019-02-21] MEDS ORDERED: OBEPIDURAL* 250 ML EPIDURAL SCH (01:00)
[2019-02-21] MEDS ORDERED: Ammonia Inhalant* 1 EA AMP ONE (01:25)
[2019-02-21] MEDS: Acetaminophen TAB* 325 MG PO PRN (05:29)
[2019-02-21 06:20] LABS: Hematocrit 29 % (35-47); Hemoglobin 9.6 g/dL (12.0-16.0); Mean Corpuscular HGB Conc 34 g/dL (31-36); Mean Corpuscular Hemoglobin 28 pg (27-31); Mean Corpuscular Volume 83 fL (80-97); Mean Platelet Volume 10.3 fL (7.4-10.4); Platelet Count 143 10^3/uL (150-450); Red Blood Count 3.41 10^6 /uL (3.70-4.87); Red Cell Distribution Width 14 % (10-15); White Blood Count 24.5 10^3/uL (3.5-10.8)
[2019-02-21 07:56] LABS: ABS Lymphocytes 2.4 10^3/ul (1.0-4.8); ABS Monocytes 2.2 10^3/ul (0-0.8); ABS Neutrophils 19.7 10^3/ul (1.5-7.7); Eosinophil % 0.2 %
[2019-02-21] MEDS ORDERED: Simethicone TAB* 80 MG TAB.CHEW PO SCH (08:30)
[2019-02-21] MEDS: Ferrous Gluconate TAB* 324 MG TAB PO SCH ×2 (08:37→21:22)
[2019-02-21] MEDS: Docusate CAP* 100 MG PO SCH ×3 (08:37→21:22)
[2019-02-22] MEDS: Ibuprofen TAB* 600 MG PO PRN (06:29)
[2019-02-22 08:25] VITALS: BP 103/50
[2019-02-22] MEDS: Docusate CAP* 100 MG PO SCH (09:21)
[2019-02-22] MEDS: Ferrous Gluconate TAB* 324 MG TAB PO SCH (09:21)
[2019-02-22] MEDS: Acetaminophen TAB* 325 MG PO PRN (09:33)
== END 2019-02-22 13:12 | disposition home or self-care (01) | DRG 560 ==
LOC: MCHOBOUT 14:34 → MCHOB 20:25
PROVIDERS: ADMIT Obstetrics & Gynecology; ATTEND Obstetrics & Gynecology
PROC: 10E0XZZ Delivery of Products of Conception, External Approach (ICD-10-PCS; principal; 2019-02-20)
DX: O99.344 Other mental disorders complicating childbirth (principal); Z37.0 Single live birth; F41.9 Anxiety disorder, unspecified; O69.81X0 Labor and delivery complicated by cord around neck, without compression, not applicable or unspecified; O32.6XX0 Maternal care for compound presentation, not applicable or unspecified; O90.81 Anemia of the puerperium; D64.9 Anemia, unspecified; Z3A.39 39 weeks gestation of pregnancy
CPT/HCPCS: 36415; 84112; 85025; 85027; 86850; 86900; 86901; A9270-GY; J2300; J2550

== ENCOUNTER 2019-04-05 17:17 | Emergency (ER) | payer OTHER | END 2019-04-05 17:28 | disposition left against medical advice (07) | LOC: UCCORT 17:17 | DX: Z53.21 Procedure and treatment not carried out due to patient leaving prior to being seen by health care provider (principal) ==

== ENCOUNTER 2019-06-10 17:18 | Emergency (ER) | payer OTHER ==
--- OUTSIDE RECORDS SUMMARY | 2019-06-10 17:37 | XMS REPORT | Continuity of Care Document ---
:1995 External Reference #:[id number] Author Name Amaris Wong MD Address [address] [place] [address] Problems Active Problems Provider Date Primigravida Ruth Stout CNM Onset: 10/29/2018 Social History Type Date Description Comments Sex Unknown Cigarette Use Former Cigarette Smoker quit 2016 ETOH Use Denies alcohol use Recreational Drug Use Denies Drug Use Tobacco Use Start: Unknown End: Patient is a former smoker Unknown Smoking Status Reviewed: 04/14/19 Patient is a former smoker Seat Belt/Car Seat Always uses seat belt EDGAR: 02/26/2019 Estimated Date of Delivery Based on LMP Allergies, Adverse Reactions, Alerts Active Allergies Reaction Severity Comments Date Promethacodone 08/05/2018 Medications Description No Active Medications Immunizations CPT Code Status Date Vaccine Lot # [id number] Given 01/08/2019 Influenza Vaccine Quadrivalent Preser/Antibiotic [id number] Free Im Use [id number] Given 11/26/2018 Tetnus, Diptheria Toxoids And Acellular Pertussis, 2E3EH PT > 7Yrs Old Vital Signs Date Vital Result Comment 04/14/2019 11:06am BP Systolic 122 mmHg BP Diastolic 72 mmHg Height 63.5 inches 5'3.50" Weight 185.00 lb BMI (Body Mass Index) 32.3 kg/m2 Last Menstrual Period [id number] 1 Parity 1 01/26/2019 11:41am BP Systolic 122 mmHg BP Diastolic 78 mmHg Height 63.5 inches 5'3.50" Weight 198.00 lb BMI (Body Mass Index) 34.5 kg/m2 1 Parity 0 Results Test Acquired Date Facility Test Result H/L Range Note Laboratory test 02/20/2019 [facility] Rupture of Positive 1 [place] [address] Membranes [phone] Laboratory test 02/16/2019 [facility] Rupture of Negative 2 [place] [address] Membranes [phone] Laboratory test 01/29/2019 [facility] Genital For GRP SEE RESULT 3 finding [place] [address] B Strep Only BELOW [phone] Tot Prot 24HR 01/28/2019 [facility] Urine 24 [place] [address] Collection Time [phone] OB Urine Total Volume OB 2550 mL Ur TP Concentration Obstetric 10 mg/dL Ur Tot Protein/24Hr Obstetric 255 mg/24Hr High 0-165 Laboratory test 01/27/2019 [facility] Rupture of Negative [address] [place] [address] Membranes [phone] Comp Metabolic 01/26/2019 [facility] Sodium 136 mmol/L Normal 135-1 Panel [place] [address] 45 [phone] Potassium 4.1 mmol/L Normal 3.5-5.0 Chloride 106 mmol/L Normal 101-111 Co2 Carbon Dioxide 22 mmol/L Normal 22-32 Anion Gap 8 mmol/L Normal 2-11 Glucose 80 mg/dL Normal 70-100 Blood Urea Nitrogen 7 mg/dL Normal 6-24 Creatinine 0.65 mg/dL Normal 0.51-0.95 BUN/Creatinine Ratio 10.8 Normal 8-20 Calcium 9.6 mg/dL Normal 8.6-10.3 Total Protein 6.4 g/dL Normal 6.4-8.9 Albumin 3.6 g/dL Normal 3.2-5.2 Globulin 2.8 g/dL Normal 2-4 Albumin/Globulin Ratio 1.3 Normal 1-3 Total Bilirubin 0.30 mg/dL Normal 0.2-1.0 Alkaline Phosphatase 148 U/L High 34-104 Alt 16 U/L Normal 7-52 Ast 19 U/L Normal 13-39 Egfr Non- 115.1 >60 Egfr 139.2 >60 5 Laboratory test 01/26/2019 [facility] Uric Acid 4.9 mg/dL Normal 2.3-6.6 6 finding [place] [address] [phone] CBC With No Diff 01/26/2019 [facility] White 13.3 High 3.5- 10.8 [place] [address] Blood 10^3/uL [phone] Count Red Blood Count 3.98 10^6/uL Normal 3.70-4.87 Hemoglobin 11.3 g/dL Low 12.0-16.0 Hematocrit 34 % Low 35-47 Mean Corpuscular Volume 84 fL Normal 80-97 Mean Corpuscular Hemoglobin 29 pg Normal 27-31 Mean Corpuscular HGB Conc 34 g/dL Normal 31-36 Red Cell Distribution Width 14 % Normal 10-15 Platelet Count 152 10^3/uL Normal 150-450 Mean Platelet Volume 10.8 fL High 7.4-10.4 Laboratory test 01/11/2019 [facility] Rupture of Negative 7 [place] [address] Membranes [phone] Glucose 12/09/2018 [facility] GTT 3HR (SEE NOTE) 8 Tolerance 3HR [place] [address] Gestational Gestational [phone] Urine Drug SCR 12/04/2018 [facility] Urine None None 9 ED & [place] [address] Amphetamine Detected Detect Clinic [phone] Screen Urine Barbiturates Screen None Detected None Detect Urine Benzodiazepine Screen None Detected None Detect Urine Cannabinoids Screen None Detected None Detect Urine Cocaine Screen None Detected None Detect Urine Opiates Screen None Detected None Detect Urine Phencyclidine Screen None Detected None Detect 10 Urinalysis Profile 12/04/2018 [facility] [place] [address] [phone] Urine Appearance Clear Urine Specific [place] 1.012 Normal 1.010-1.030 Urine pH 7.0 Normal 5-9 Urine Urobilinogen Negative Negative Urine Ketones Negative Negative Urine Protein Negative Negative Urine Leukocytes Negative Negative Urine Blood Negative Negative Urine Nitrite Negative Negative Urine Bilirubin Negative Negative Urine Glucose Negative Negative Urine Culture And 12/03/2018 [facility] Urine Culture SEE RESULT 11 [place] [address] BELOW [phone] Laboratory test 11/26/2018 [facility] Glucose 1 HR 153 mg/dL Normal 70-1 12 [place] [address] Post Prandial 60 [phone] CBC With No Diff 11/26/2018 [facility] White Blood 12.7 High 3.5- [place] [address] Count 10^3/uL 10.8 [phone] Red Blood Count 3.68 10^6/uL Low 3.70-4.87 Hemoglobin 10.9 g/dL Low 12.0-16.0 Hematocrit 33 % Low 35-47 Mean Corpuscular Volume 89 fL Normal 80-97 Mean Corpuscular Hemoglobin 30 pg Normal 27-31 Mean Corpuscular HGB Conc 33 g/dL Normal 31-36 Red Cell Distribution Width 13 % Normal 10-15 Platelet Count 149 10^3/uL Low 150-450 Mean Platelet Volume 10.8 fL High 7.4-10.4 Urinalysis Profile 11/25/2018 [facility] [place] [address] [phone] Urine Appearance Cloudy Urine Specific [place] 1.008 Low 1.010-1.030 Urine pH 7.0 Normal 5-9 Urine Urobilinogen Negative Negative Urine Ketones Negative Negative Urine Protein Negative Negative Urine Leukocytes Negative Negative Urine Blood Negative Negative Urine Nitrite Negative Negative Urine Bilirubin Negative Negative Urine Glucose Negative Negative Urine Drug 11/25/2018 [facility] Urine None Detected None Detect SCR ED & [place] [address] Amphetamine Pain Clinic [phone] Screen Urine Barbiturates Screen None Detected None Detect Urine Benzodiazepine Screen None Detected None Detect Urine Cannabinoids Screen None Detected None Detect Urine Cocaine Screen None Detected None Detect Urine Opiates Screen None Detected None Detect Urine Phencyclidine Screen None Detected None Detect 13 Urine Culture And 11/25/2018 [facility] Urine Culture SEE RESULT 14 [place] [address] BELOW [phone] Laboratory test 10/15/2018 [facility] Gardnerella/Ye SEE RESULT 15, 16 [place] [address] ast: Vaginal BELOW [phone] Dna Laboratory test 10/15/2018 [facility] Rupture of Negative 17 [place] [address] Membranes [phone] Urinalysis Profile 10/15/2018 [facility] Urine Color Yellow 18 [place] [address] [phone] Urine Appearance Clear Urine Specific [place] 1.013 Normal 1.010-1.030 Urine pH 7.0 Normal 5-9 Urine Urobilinogen Positive Abnormal Negative Urine Ketones Negative Negative Urine Protein Negative Negative Urine Leukocytes Negative Negative Urine Blood 1+ Abnormal Negative Urine Nitrite Negative Negative Urine Bilirubin Negative Negative Urine Glucose Negative Negative Urine White Blood Cell Trace(0-5/hpf) Absent Urine Red Blood Cell 3+(>10/hpf) Abnormal Absent Urine Bacteria 1+ Abnormal Absent Urine Squamous Epithelial Cell Present Abnormal Absent Urine Drug 10/15/2018 [facility] Urine None Detected None Detect SCR [place] & [place] [address] Amphetamine Pain Clinic [phone] Screen Urine Barbiturates Screen None Detected None Detect Urine Benzodiazepine Screen None Detected None Detect Urine Cannabinoids Screen None Detected None Detect Urine Cocaine Screen None Detected None Detect Urine Opiates Screen None Detected None Detect Urine Phencyclidine Screen None Detected None Detect 19 Urine Culture And 10/15/2018 [facility] Urine Culture SEE RESULT 20 [place] [address] BELOW [phone] 1 A POSITIVE result indicates probable membrane rupture. 2 A NEGATIVE results indicates there is no evidence of membrane rupture. 3 SEE RESULT BELOW Name: KSENIANEHAL : [address]: Junior Howard DO Acct: [id number] Unit: [id number] AGE: 23 Location: [facility] Re01/29/19 SEX: F Status: REG REF SPEC: [id number] RAVI: 01/29/19-[address]: Junior Howard DO REQ: [id number] RECD: 01/29/19 STATUS: COMP _ SOURCE: CER/VAG/RE SPDESC: ORDERED: Grp B Strdeclan Scrn COMMENTS: [id number] QUERIES: Is Patient Penicillin Allergic? N Is patient penicillin allergic and/or sensitivities needed? N Provider Requisition # C77#[id number] Procedure Result Reported Site Group B Strep Culture Screen Final 01/31/19- 1307 ML Group B Strep Screen Negative * ML - Main Lab . END OF REPORT DEPARTMENT OF PATHOLOGY, [address] [place] [address] Tito Cesar M.D. Director [facility] # [id number] 4 A NEGATIVE results indicates there is no evidence of membrane rupture. 5 Because ethnic data is not always readily available, this report includes an eGFR for both -Americans and non- Americans. The National Kidney Disease Education Program (NKDEP) does not endorse the use of the MDRD equation for patients that are not between the ages of 18 and 70, are , have extremes of body size, muscle mass, or nutritional status, or are non- or non-. According to the National Kidney Foundation, irrespective of diagnosis, the stage of the disease is based on the level of kidney function: Stage Description GFR(mL/min/1.73 m(2)) 1 Kidney damage with normal or decreased GFR 90 2 Kidney damage with mild decrease in GFR 60-89 3 Moderate decrease in GFR 30-59 4 Severe decrease in GFR 15-29 5 Kidney failure <15 (or dialysis) 6 [id number] 7 A NEGATIVE results indicates there is no evidence of membrane rupture. 8 GLU Fast 76 Col: 12/09/18 1114 GLU 1HR 155 Col: 12/09/18 1214 GLU 2HR 183 Col: 12/09/18 1314 GLU 3HR 114 Col: 12/09/18 1414 GLU Interp Col: 12/09/18 1114 GTT normal ranges for obstetrics per the [employer] [place] [employer] (ACOG).Based on 100 gm glucose load: Fasting <95 mg/dl 1hr <180 mg/dl 2hr <155 mg/dl 3hr <140 mg/dl 9 Urine Source: Clean Catch 10 The urine specimen was tested at the listed cutoffs: Drug class test level (ng/mL) Amphetamines 500 Barbiturates 200 Benzodiazepine metabolites 200 Cocaine metabolites 150 Cannabinoids 50 Opiates 300 Pcp 25 Specimen was received without chain of custody. Results should be used for medical purposes only. 11 SEE RESULT BELOW Name: NEHAL MCCORMACK : [address]: Evy Godinez [facility] Acct: [id number] Unit: [id number] AGE: 23 Location: [facility] Re12/03/18 SEX: F Status: REG REF SPEC: [id number] RAVI: 12/03/18-[address]: Evy Godinez [facility] REQ: [id number] RECD: 12/03/18 STATUS: COMP _ SOURCE: URINE SPDESC: ORDERED: Urine Culture COMMENTS: [id number] Urine Source: Random Procedure Result Reported Site Urine Culture Final 12/04/18- 1618 ML No Growth (<1,000 CFU/mL) * ML - Main Lab . END OF REPORT DEPARTMENT OF PATHOLOGY, [address] [place] [address] Tito Cesar M.D. Director [facility] # [id number] 12 [id number] 13 The urine specimen was tested at the listed cutoffs: Drug class test level (ng/mL) Amphetamines 500 Barbiturates 200 Benzodiazepine metabolites 200 Cocaine metabolites 150 Cannabinoids 50 Opiates 300 Pcp 25 Specimen was received without chain of custody. Results should be used for medical purposes only. 14 SEE RESULT BELOW Name: NEHAL MCCORMACK : [address]: Veto Brar MD Acct: [id number] Unit: [id number] AGE: 23 Location: [facility] Re11/25/18 SEX: F Status: DEP REF SPEC: [id number] RAVI: 11/25/[address] [facility] [address]: Veto Brar MD REQ: [id number] RECD: 11/25/18 STATUS: MICHAEL SHIELDS DR: Hemant Malone DO _ SOURCE: URINE SPDESC: ORDERED: Urine Culture QUERIES: Urine Source: Clean Catch Procedure Result Reported Site Urine Culture Final 11/27/18- 929 ML No Growth (<1,000 CFU/mL) * ML - Main Lab . END OF REPORT DEPARTMENT OF PATHOLOGY, [address] [place] [address] Tito Cesar M.D. Director [facility] # [id number] 15 Would you like to order Trichomonas Vaginalis RNA testing? Y 16 SEE RESULT BELOW Name: NEHAL MCCORMACK : [address]: Evy HENRY Acct: [id number] Unit: [id number] AGE: 23 Location: [facility] Re10/15/18 SEX: F Status: DEP REF SPEC: [id number] RAVI: 10/15/[address] [facility] [address]: Evy Godinez [facility] REQ: [id number] RECD: 10/15/18 STATUS: MICHAEL SHIELDS DR: Hemant Malone DO _ SOURCE: VAGINAL SPDESC: ORDERED: Mikey,Yeast DNA, Trich DNA COMMENTS: Would you like to order Trichomonas Vaginalis RNA testing? Y Procedure Result Reported Site Gardnerella/Yeast: Vaginal DNA Final 10/16/18- 1014 ML Organism 1 Negative Gardnerella Organism 2 Negative Alma The presence of G. vaginalis, although suggestive, is not diagnostic for bacterial vaginosis. Results should be interpreted in conjuction with other clinical and laboratory data available. Women with vaginal discharge should be evaluated for risk factors of cervicitis and pelvic inflammatory disease, toxic shock syndrome (S.aureus), and if present, evaluated for organisms not included in this assay such as N. gonorrhoeae, C. trachomatis, Mobiluncus, Mycoplasma and/or Prevotella. Mixed infections may occur. The performance of this test on patient specimens collected during or immediately after antimicrobial therapy is unknown. The presence or absence of Alma species, or G. vaginalis cannot be used as a test for therapeutic success or failure. Trichomonas: Vaginal DNA Probe Final 10/16/18- 1014 ML Organism 1 Negative Trichomonas The presence or absence of T. vaginalis cannot be used as a test for therapeutic success or failure. * ML - Main Lab . END OF REPORT DEPARTMENT OF PATHOLOGY, [address] [place] [address] Tito Cesar M.D. Director [facility] # [id number] 17 A NEGATIVE results indicates there is no evidence of membrane rupture. 18 Urine Source: Clean Catch 19 The urine specimen was tested at the listed cutoffs: Drug class test level (ng/mL) Amphetamines 500 Barbiturates 200 Benzodiazepine metabolites 200 Cocaine metabolites 150 Cannabinoids 50 Opiates 300 Pcp 25 Specimen was received without chain of custody. Results should be used for medical purposes only. 20 SEE RESULT BELOW Name: NEHAL MCCORMACK : [address]: Evy Godinez [facility] Acct: [id number] Unit: [id number] AGE: 23 Location: [facility] Re10/15/18 SEX: F Status: DEP REF SPEC: [id number] RAVI: 10/15/[address]: Evy Godinez [facility] REQ: [id number] RECD: 10/15/18 STATUS: MICHAEL SHIELDS DR: Hemant Malone DO _ SOURCE: URINE SPDESC: ORDERED: Urine Culture Procedure Result Reported Site Urine Culture Final 10/16/18- 1620 ML No Growth (<1,000 CFU/mL) * ML - Main Lab . END OF REPORT DEPARTMENT OF PATHOLOGY, [address] [place] [address] Tito Cesar M.D. Director [facility] # [id number] Procedures Date Code Description Status 02/20/2019 06681 Obstetric Care Routine Completed 01/11/2019 01842 Non-Stress Test Completed 12/04/2018 10701 Non-Stress Test Completed 11/25/2018 76146 Echography Uterus Limited Completed 11/25/2018 93219 Non-Stress Test Completed Medical Devices Description No Information Available Encounters Type Date Location Provider Dx Diagnosis Office Visit 01/11/2019 Delivery Cassandra Rosas O47.03 False labor before 8:19a RUDI Holloway 37 completed weeks of gest, third tri Office Visit 12/04/2018 Delivery Amaris Wong MD O47.03 False labor before 9:03a 37 completed weeks of gest, third tri Office Visit 11/25/2018 Delivery Veto MarinoTony Ashwinimalathi, O47.03 False labor before 9:47a M.D. 37 completed weeks of gest, third tri Office Visit 10/15/2018 [facility] Dora Flores CNM O47.02 False labor before 1:57p 37 completed weeks of gest, second tri Assessments Date Code Description Provider 04/14/2019 Z39.2 Encounter for routine follow-up Amaris Wong MD 02/20/2019 O80 Encounter for full-term uncomplicated Amaris Wong MD delivery 02/20/2019 Z38.00 Single liveborn , delivered Amaris Wong MD vaginally 02/20/2019 Z39.0 Encounter for care and examination of Amaris Wong MD mother immediately after delivery 02/20/2019 Z3A.39 39 weeks gestation of Amaris Wong MD 02/19/2019 Z36.9 Encounter for screening, Fariba Grijalva MD unspecified 02/12/2019 Z34.03 Encounter for supervision of normal first Claudio Zamorano MD , third trimester 02/05/2019 Z36.9 Encounter for screening, Fariba Grijalva MD unspecified 01/29/2019 Z34.03 Encounter for supervision of normal first Junior Howard JR, DO , third trimester 01/26/2019 Z34.03 Encounter for supervision of normal first Junior Howard JR, DO , third trimester 01/22/2019 Z34.03 Encounter for supervision of normal first Claudio Zamorano MD , third trimester 01/14/2019 Z34.03 Encounter for supervision of normal first Cassandra Holloway CNM , third trimester 01/11/2019 O47.03 False labor before 37 completed weeks of Cassandra Holloway CNM gestation, third trimester 01/08/2019 Z34.03 Encounter for supervision of normal first Claudio Zamorano MD , third trimester 01/08/2019 Z23 Encounter for immunization Claudio Zamorano MD 12/25/2018 Z34.83 Encounter for supervision of other normal Veto Brar M.D. , third trimester 12/09/2018 Z36.9 Encounter for screening, Veto Brar M.D. unspecified 12/09/2018 Z34.03 Encounter for supervision of normal first Junior Howard JR, DO , third trimester 12/09/2018 Z36.9 Encounter for screening, Laboratory unspecified 12/04/2018 O47.03 False labor before 37 completed weeks of Amaris Wong MD gestation, third trimester 12/03/2018 Z34.03 Encounter for supervision of normal first Evy Godinez CNM , third trimester 11/26/2018 Z36.9 Encounter for screening, Veto Brar M.D. unspecified 11/26/2018 Z36.9 Encounter for screening, Laboratory unspecified 11/26/2018 Z34.03 Encounter for supervision of normal first Evy Godinez CNM , third trimester 11/26/2018 Z23 Encounter for immunization Evy Godinez CNM 11/25/2018 O47.03 False labor before 37 completed weeks of Veto Brar M.D. gestation, third trimester 10/29/2018 Z34.02 Encntr for suprvsn of normal first preg, Ruth Stout CNM second trimester 10/15/2018 O47.02 False labor before 37 completed weeks of Dora Flores CNM gest, second tri 10/13/2018 Z34.02 Encntr for suprvsn of normal first preg, Dora Flores CNM second trimester Plan of Treatment 04/14/2019 - Amaris Wong MDZ39.2 Encounter for routine follow- upComments:Continue to eat a healthy diet and begin some light exercise as tolerated.No running, biking or working your abdominal muscles until after 6 weeks. When you resume exercise increased very slowly. You may be able to get even if you haven't resumed periods yet. No intercourse before IUD appointment Functional Status Description No Information Available Mental Status Description No Information Available Referrals Description No Information Available
--- OUTSIDE RECORDS SUMMARY | 2019-06-10 17:37 | XMS REPORT | Continuity of Care Document ---
:1995 External Reference #:[id number] Author Name Dora Flores CNM Address [address] [place] [address] Problems Active Problems Provider Date Primigravida Ruth Stout CNM Onset: 10/29/2018 Social History Type Date Description Comments Sex Unknown Cigarette Use Former Cigarette Smoker quit 2017 ETOH Use Denies alcohol use Recreational Drug Use Denies Drug Use Tobacco Use Start: Unknown End: Patient is a former smoker Unknown Smoking Status Reviewed: 04/14/19 Patient is a former smoker Seat Belt/Car Seat Always uses seat belt EDGAR: 02/26/2019 Estimated Date of Delivery Based on LMP Allergies, Adverse Reactions, Alerts Active Allergies Reaction Severity Comments Date Promethacodone 08/05/2018 Medications Active Medications SIG Qnty Indications Ordering Provider Date Liletta (52 MG) Dora Flores CNM 05/10/2019 19.5mcg/Day IUD History Medications No Active Medications Unknown 04/14/2019 - 05/10/2019 Immunizations CPT Code Status Date Vaccine Lot # [id number] Given 01/08/2019 Influenza Vaccine Quadrivalent Preser/Antibiotic [id number] Free Im Use 24269 Given 11/26/2018 Tetnus, Diptheria Toxoids And Acellular Pertussis, 2E3EH PT > 7Yrs Old Vital Signs Date Vital Result Comment 05/10/2019 1:02pm BP Systolic 112 mmHg BP Diastolic 74 mmHg Height 63.5 inches 5'3.50" Weight 180.00 lb BMI (Body Mass Index) 31.4 kg/m2 Last Menstrual Period 4377403 1 Parity 1 04/14/2019 11:06am BP Systolic 122 mmHg BP Diastolic 72 mmHg Height 63.5 inches 5'3.50" Weight 185.00 lb BMI (Body Mass Index) 32.3 kg/m2 Last Menstrual Period 4087857 1 Parity 1 Results Test Acquired Date Facility Test Result H/L Range Note Laboratory test 02/20/2019 [facility] Rupture of Positive [address] [place] [address] Membranes [phone] Laboratory test 02/16/2019 [facility] Rupture of Negative [address] [place] [address] Membranes [phone] Laboratory test 01/29/2019 [facility] Genital For GRP SEE RESULT [address] [place] [address] B Strep Only BELOW [phone] Tot Prot 24HR 01/28/2019 [facility] Urine 24 [place] [address] Collection Time [phone] OB Urine Total Volume OB 2550 mL Ur TP Concentration Obstetric 10 mg/dL Ur Tot Protein/24Hr Obstetric 255 mg/24Hr High 0-165 Laboratory test 01/27/2019 [facility] Rupture of Negative [address] [place] [address] Membranes [phone] Comp Metabolic 01/26/2019 [facility] Sodium 136 mmol/L Normal 135-1 [place] [address] 45 [phone] Potassium 4.1 mmol/L Normal 3.5-5.0 Chloride 106 [...] Egfr 139.2 >60 5 Laboratory test 01/26/2019 [facility] Uric Acid 4.9 mg/dL Normal 2.3-6.6 6 [place] [address] [phone] CBC With No Diff 01/26/2019 [facility] White 13.3 High 3.5- 10.8 [place] [address] Blood 10^3/uL [phone] Count Red Blood Count 3.98 10^6/uL Normal [...] 10.8 fL High 7.4-10.4 Laboratory test 01/11/2019 [facility] Rupture of Negative [address] [place] [address] Membranes [phone] Glucose Tolerance 12/09/2018 [facility] GTT 3HR (SEE NOTE) 8 3[place] [address] Gestational [phone] Urinalysis Profile 12/04/2018 [facility] Urine Color Yellow [address] [place] [address] [phone] Urine Appearance Clear Urine Specific [place] 1.012 Normal 1.010-1.030 Urine pH 7.0 Normal 5-9 Urine Urobilinogen Negative Negative Urine Ketones Negative Negative Urine Protein Negative Negative Urine Leukocytes Negative Negative Urine Blood Negative Negative Urine Nitrite Negative Negative Urine Bilirubin Negative Negative Urine Glucose Negative Negative Urine Drug 12/04/2018 [facility] Urine None Detected None Detect [facility] & [place] [address] [facility] [phone] Screen Urine Barbiturates Screen None Detected None Detect Urine Benzodiazepine Screen None Detected None Detect Urine Cannabinoids Screen None Detected None Detect Urine Cocaine Screen None Detected None Detect Urine Opiates Screen None Detected None Detect Urine Phencyclidine Screen None Detected None Detect 10 Urine Culture And 12/03/2018 [facility] Urine Culture SEE RESULT 11 [place] [address] BELOW [phone] Laboratory test 11/26/2018 [facility] Glucose 1 HR 153 mg/dL Normal 70-1 12 [place] [address] Post Prandial 60 [phone] CBC With No Diff 11/26/2018 [facility] White Blood 12.7 High 3.5- [place] [address] Count 10^3/uL 10.8 [phone] Red Blood Count 3.68 10^6/uL Low 3.70-4.87 Hemoglobin 10.9 g/dL Low 12.0-16.0 Hematocrit 33 % Low 35-47 Mean Corpuscular Volume 89 fL Normal 80-97 Mean Corpuscular Hemoglobin 30 pg Normal 27-31 Mean Corpuscular HGB Conc 33 g/dL Normal 31-36 Red Cell Distribution Width 13 % Normal 10-15 Platelet Count 149 10^3/uL Low 150-450 Mean Platelet Volume 10.8 fL High 7.4-10.4 Urinalysis Profile 11/25/2018 [facility] [place] [address] [phone] Urine Appearance Cloudy Urine Specific [place] 1.008 Low 1.010-1.030 Urine pH 7.0 Normal 5-9 Urine Urobilinogen Negative Negative Urine Ketones Negative Negative Urine Protein Negative Negative Urine Leukocytes Negative Negative Urine Blood Negative Negative Urine Nitrite Negative Negative Urine Bilirubin Negative Negative Urine Glucose Negative Negative Urine Drug 11/25/2018 [facility] Urine None Detected None Detect [facility] & [place] [address] [facility] [phone] Screen Urine Barbiturates Screen None Detected None Detect Urine Benzodiazepine Screen None Detected None Detect Urine Cannabinoids Screen None Detected None Detect Urine Cocaine Screen None Detected None Detect Urine Opiates Screen None Detected None Detect Urine Phencyclidine Screen None Detected None Detect 13 Urine Culture And 11/25/2018 [facility] Urine Culture SEE RESULT 14 [place] [address] BELOW [phone] A POSITIVE result indicates probable membrane rupture. 2 A NEGATIVE results indicates there is no evidence of membrane rupture. 3 SEE RESULT BELOW Name: NEHAL MCCORMACK : [address]: Junior Howard DO Acct: [id number] Unit: [id number] AGE: 23 Location: [facility] Re01/29/19 SEX: F Status: REG REF SPEC: [id number] RAVI: 01/29/19-[address]: Junior Howard DO REQ: [id number] RECD: 01/29/19 STATUS: COMP _ SOURCE: CER/VAG/RE SPDESC: ORDERED: Grp B Strp Scrn COMMENTS: [id number] QUERIES: Is Patient Penicillin Allergic? N Is patient penicillin allergic and/or sensitivities needed? N Provider Requisition # [id number] Procedure Result Reported Site Group B Strep Culture Screen Final 01/31/19- 1307 ML Group B Strep Screen Negative * ML - Main Lab . END OF REPORT DEPARTMENT OF PATHOLOGY, [address] [place] [address] Tito Cesar M.D. Director [facility] # [id number] 4 A NEGATIVE results indicates there is [...] 5 Kidney failure <15 (or dialysis) 6 [id number] 7 A NEGATIVE results indicates there is no evidence of membrane rupture. 8 GLU Fast 76 Col: 12/09/18 1114 GLU 1HR 155 Col: 12/09/18 1214 GLU 2HR 183 Col: 12/09/18 1314 GLU 3HR 114 Col: 12/09/18 1414 GLU Interp Col: 12/09/18 1114 GTT normal ranges for obstetrics per the [employer] (ACOG).Based on 100 gm [...] purposes only. 11 SEE RESULT BELOW Name: KSENIARONNYNEHAL : [address]: Evy Godinez CNM Acct: [id number] Unit: [id number] AGE: 23 Location: [facility] Re12/03/18 SEX: F Status: REG REF SPEC: [id number] RAVI: 12/03/[address]: Evy Godinez CNM REQ: [id number] RECD: 12/03/18 STATUS: COMP _ SOURCE: URINE SPDESC: ORDERED: Urine Culture COMMENTS: [id number] Urine Source: Random Procedure Result Reported Site Urine Culture Final 12/04/18- 1618 ML No Growth (<1,000 CFU/mL) * ML - Main Lab . END OF REPORT DEPARTMENT OF PATHOLOGY, [address] [place] [address] Tito Cesar M.D. Director [facility] # [id number] 12 [id number] 13 The urine specimen was tested at the listed cutoffs: Drug class test level (ng/mL) Amphetamines 500 Barbiturates 200 Benzodiazepine metabolites 200 Cocaine metabolites 150 Cannabinoids 50 Opiates 300 Pcp 25 Specimen was received without chain of custody. Results should be used for medical purposes only. 14 SEE RESULT BELOW Name: NEHAL MCCORMACK : [address]: Veto Brar MD Acct: [id number] Unit: [id number] AGE: 23 Location: [facility] Re11/25/18 SEX: F Status: DEP REF SPEC: [id number] RAVI: 11/25/[address] [facility] [address]: Veto Brar MD REQ: [id number] RECD: 11/25/18 STATUS: MICHAEL SHIELDS DR: Hemant Malone DO _ SOURCE: URINE SPDESC: ORDERED: Urine Culture QUERIES: Urine Source: Clean Catch Procedure Result Reported Site Urine Culture Final 11/27/18929 ML No Growth (<1,000 CFU/mL) * ML - Main Lab . END OF REPORT DEPARTMENT OF PATHOLOGY, [address] [place] [address] Tito Cesar M.D. Director [facility] # [id number] Procedures Date Code Description Status 05/10/2019 73995 Insert Intrauterine Device Completed 02/20/2019 45559 Obstetric Care Routine Completed 01/11/2019 18859 Non-Stress Test Completed 12/04/2018 17201 Non-Stress Test Completed 11/25/2018 36175 Echography Uterus Limited Completed 11/25/2018 59470 Non-Stress Test Completed Medical Devices Description No Information Available Encounters Type Date Location Provider Dx Diagnosis Office Visit 01/11/2019 Delivery Cassandra Holloway, O47.03 False labor before 8:19a CNM 37 completed weeks of gest, third tri Office Visit 12/04/2018 Delivery Amaris Wong MD O47.03 False labor before 9:03a 37 completed weeks of gest, third tri Office Visit 11/25/2018 Delivery Veto MarinoTony Brar, O47.03 False labor before 9:47a M.D. 37 completed weeks of gest, third tri Assessments Date Code Description Provider 05/10/2019 Z30.430 Encounter for insertion of intrauterine Ayaaniangatito , CNM contraceptive device 04/14/2019 Z39.2 Encounter for routine Amaris Wong MD follow-up 02/20/2019 O80 Encounter for full-term uncomplicated Amaris Wong MD delivery 02/20/2019 Z38.00 Single liveborn infant, delivered Amairs Wong MD vaginally 02/20/2019 Z39.0 Encounter for [...] for supervision of normal first Junior Howard JR DO , third trimester 01/26/2019 Z34.03 Encounter for supervision of normal first Junior Howard JR DO , third trimester 01/22/2019 Z34.03 Encounter [...] of Veto Brar M.D. gestation, third trimester Plan of Treatment Future Appointment(s):06/09/2019 9:00 am - Dora Flores CNM at [facility] [id number] - Dora Flores CNMZ30.430 Encounter for insertion of intrauterine contraceptive deviceComments:Return for string check in 4-6 weeks. Call for any problems or concerns. Functional Status Description No Information Available Mental Status Description No Information Available Referrals Description No Information Available
[2019-06-10 18:17] VITALS: BP 105/66
== END 2019-06-10 18:44 | disposition left against medical advice (07) ==
LOC: UCCORT 17:18
DX: Z53.21 Procedure and treatment not carried out due to patient leaving prior to being seen by health care provider (principal)
CPT/HCPCS: 81003; 84702